=== PATIENT | female | born 1985 | race Caucasian/White ===

== ENCOUNTER 2018-12-07 10:46 | Observation (INO) | payer MEDICAID ==
[2018-12-07] MEDS ORDERED: Acetaminophen TAB* 325 MG PO PRN (20:14)
[2018-12-07] MEDS: Morphine INJ* 2 MG/ML 1 ML SYRINGE (TWO MG - NEW SYRINGE VERSION) IV PRN (20:49)
[2018-12-07] MEDS ORDERED: Enoxaparin(*) 40 MG/0.4 ML SYR SUBCUT SCH (21:00)
[2018-12-08] MEDS ORDERED: traZODone TAB* 100 MG PO SCH (01:00)
[2018-12-08] MEDS: Gabapentin CAP(*) 100 MG PO SCH ×2 (01:24→09:09)
[2018-12-08] MEDS: tiZANidine TAB* 2 MG PO SCH ×2 (01:29→09:09)
--- NOTE | 2018-12-08 03:10 | HP ---
CC: Dr. Aleksander Fuentes; MIKE Aburto * HISTORY AND PHYSICAL: DATE OF ADMISSION: 12/07/18 PROVIDER: Evelina Botello NP PRIMARY CARE PROVIDER: MIKE Aburto ATTENDING PHYSICIAN WHILE IN THE HOSPITAL: Dr. Oneyda Sims * (dictated by Evelina Botello NP) CHIEF COMPLAINT: Left foot and lower leg numbness. HISTORY OF PRESENT ILLNESS: Ms. Patrick is a 33-year-old female who initially presented to [facility] on 12/01/18 with complaints of severe pain in the neck and also pain in both lower extremities. The patient was being treated for bilateral lower extremity cellulitis and what was thought to be severe cellulitis that might be contributing to a lupus flare. While at [facility], the patient received doxycycline and Keflex and she has had a 7-day course for bilateral lower extremity cellulitis. The patient was going to be discharged on 12/06/18 and then developed numbness in her left foot and left lower leg, so [facility] was contacted for consult from Neurology and it was recommended that the patient be transferred to [facility] for neurological consult. While at [facility], the patient did have an MRI of the brain, which showed no acute infarct. The patient reports that approximately 2 days ago, approximately 1 hour after getting out of the shower, she developed left foot tingling and left foot and lower leg numbness. She reports that it was from below the knee to her toes that felt the numbness. She reports that this remains numb and the numbness sensation is now from just above her ankle to her toes. She also reported back pain during her hospitalization at [facility]. The patient had a venous Doppler bilateral lower extremities, which was negative for DVTs. Due to the numbness in her foot, [facility] was contacted for neurology consult and the patient was transferred to the [facility] to have a neurology consult. Due to her left foot numbness, we were asked to see and evaluate her for admission. PAST MEDICAL HISTORY: Significant for: 1. Systemic lupus erythematosus. 2. Rheumatoid arthritis. 3. Gastroparesis. 4. Anxiety. 5. Depression. 6. Esophageal reflux. 7. Peripheral neuropathy. PAST SURGICAL HISTORY: 1. History of bilateral total hip replacement. 2. Bilateral carpal tunnel release. 3. History of ERCP. 4. History of GI endoscopy and colonoscopy. 5. Right shoulder replacement. 6. Bladder surgery. MEDICATIONS: Home medications include: 1. Pantoprazole 40 mg p.o. daily. 2. Klonopin 0.25 mg p.o. b.i.d. p.r.n. anxiety. 3. Ketorolac 0.5, 1 drop to the right eye 4 times a day. 4. Prednisone 1%, 1 drop to the right eye 4 times a day. 5. Tylenol 650 mg p.o. q.4 hours as needed for pain or fever. 6. Colace 100 mg p.o. b.i.d. p.r.n. constipation. 7. Lactobacillus 1 tab p.o. b.i.d. 8. Lyrica 150 mg p.o. b.i.d. 9. Gabapentin 100 mg p.o. b.i.d. 10. Zanaflex 4 mg p.o. b.i.d. 11. Cymbalta 30 mg p.o. daily. 12. Celebrex 200 mg p.o. b.i.d. 13. BuSpar 15 mg p.o. b.i.d. 14. Trazodone 100 mg p.o. q.h.s. 15. Myrbetriq Extended Release 25 mg p.o. daily. 16. Viibryd 40 mg p.o. daily. ALLERGIES: To SULFA, BACTRIM, and RITUXIMAB. FAMILY HISTORY: Maternal grandmother with rheumatoid arthritis. Mom is age 55 and does not have any rheumatoid arthritis. Father is 56 with history of hypertension. Grandmother with an MA and at the age of 69. Grandfather with diabetes. SOCIAL HISTORY: The patient lives with her significant other and son. She quit smoking approximately 4 years ago and denies any alcohol use. She does report that she does use medical marijuana occasionally. Surrogate decision maker in the event she is unable to make her own decisions is her mother or boyfriend. She is a full code. REVIEW OF SYSTEMS: The patient denies any fever or unintended weight loss, chest pain, edema. She denies any cough, hemoptysis or shortness of breath. No nausea, vomiting, diarrhea, abdominal pain, gross hematuria, dysuria. Denies any focal weakness. She does report decreased sensation to the left foot from just above the ankle to her toes. Denies any recent changes in her vision, dysphagia, arthralgias, myalgias, rashes, lesions or open sores. No psychosis or anxiety. PHYSICAL EXAMINATION GENERAL: At this time, Ms. Patrick is a 33-year-old female. She is alert and oriented, resting in her bed. She is in no acute distress. VITAL SIGNS: Blood pressure 132/91, heart rate 70, respirations 24, O2 saturation 97%, temperature was 97.0. HEENT: Head is atraumatic, normocephalic. Eyes: EOMs are intact. Sclerae anicteric and not pale. Oral mucosa appears to be moist. NECK: Supple. LUNGS: Clear to auscultation bilaterally. No wheezes, rales, or rhonchi. CARDIAC: S1, S2. Regular rate and rhythm. No murmurs, rubs or gallops. ABDOMEN: Soft and nontender. Bowel sounds are present x4. EXTREMITIES: Her hands are contracted and she does have limited range of motion to her lower extremities. Pedal pulses are +2 bilaterally. Radial pulses are +2 bilaterally. She does have mild edema noted to bilateral lower extremities with mild erythema noted to bilateral lower extremities. There are no open sores or lesions. NEUROLOGIC: She is awake, alert, oriented x3. Speech is clear. Thought process is intact. Tongue is midline. Smile is equal, push-pull is intact. There is no pronator drift. She has no pronator drift. There are no gross focal deficits noted. SKIN: She does have mild erythema noted to bilateral lower extremities, is nonpainful. She does have ecchymosis noted to her abdomen. DIAGNOSTIC STUDIES/LAB DATA: Please refer to H and P from [facility]. The patient had a negative Doppler of the right lower extremity. She had a CT angio of the chest, which showed hepatosplenomegaly, otherwise is negative for pulmonary embolism. Doppler of the left lower extremity was negative. MRI of the brain no contrast is negative. She had a mammogram BI-RADS 0, additional views of the right breast with ultrasound are needed and there was no sonographic evidence of malignancy. She had a benign inflammatory lymph node noted at 7 o'clock. Labs at [facility], lactic acid was 0.8. CBC, WBCs were 9.4, hemoglobin was 9.3, hematocrit was 32, platelet count was 341. Glucose was 105, BUN was 15, creatinine 0.6. Sodium 136, potassium 3.9, chloride 103, CO2 is 26. Albumin 2.9, globulin was 4.2, ASTs were 29, ALTs were 20, alkaline phosphatase was 30. ASSESSMENT AND PLAN: Ms. Patrick is a 33-year-old female with a past medical history significant for systemic lupus erythematosus, rheumatoid arthritis, anxiety, depression, acid reflux, presented to [facility], was transferred from [facility] with left foot numbness for a neurology consultation. She will be admitted under observation for: 1. Left foot numbness. The patient has had a negative MRI of the brain, does not appear that this is associated with an acute infarct. The patient does have severe peripheral neuropathy. I have discussed this case with Dr. Fuentes from Neurology who has recommended an MRI of the lumbar spine. This has been ordered and results are currently pending. The patient at this time has no indication of acute infarct. I will hold off on placing the patient on aspirin or statin therapy as her MRI is negative for infarct and the patient continues to have left foot numbness. Again, I have discussed this case with Dr. Fuentes who is in agreement with holding off on further workup for cerebrovascular accident. It is likely the numbness in her foot could be related to her severe peripheral neuropathy. It has been recommended that she have an EMG as an outpatient. Within the differential is also lumbar spine disease that could be causing nerve impingement exacerbating her left foot numbness, will order MRI of the lumbar spine. I will monitor her on telemetry this evening and she will be seen in consultation by Neurology in the a.m. 2. Gastroesophageal reflux disease. The patient will continue on pantoprazole 40 mg p.o. daily. 3. Anxiety and depression. She will continue on Cymbalta as previously prescribed. 4. Rheumatoid arthritis. She will continue on Celebrex and Lyrica for pain control. 5. FEN. She can have a regular diet. 6. Code status: She is a full code. 7. DVT prophylaxis: I will place her on Lovenox subcu. Routine medications will need to be ordered when medication rec is completed. This has been requested. TIME SPENT: Time spent on this admission was approximately 60 minutes, greater than half that time was spent at the bedside reviewing events leading thus far to her admission, performing physical exam, and reviewing my plan of care. I have discussed this with my attending Dr. Oneyda Sims; she is in agreement with my plan. EVELINA BOTELLO NP [id number]/[facility] #: [id number] THUAN
[2018-12-08] MEDS: Morphine INJ* 2 MG/ML 1 ML SYRINGE (TWO MG - NEW SYRINGE VERSION) IV PRN (06:16)
[2018-12-08 07:55] LABS: ABS Lymphocytes 3.7 10^3/ul (1.0-4.8); ABS Monocytes 0.5 10^3/ul (0-0.8); ABS Neutrophils 4.2 10^3/ul (1.5-7.7); Eosinophil % 0.6 %; Hematocrit 33 % (35-47); Lymphocyte % 43.2 %; Mean Corpuscular HGB Conc 30 g/dL (31-36); Mean Corpuscular Hemoglobin 19 pg (27-31); Mean Corpuscular Volume 62 fL (80-97); Mean Platelet Volume 9.1 fL (7.4-10.4); Nucleated Red Blood Cells % 0.1; Platelet Count 212 10^3/uL (150-450); Red Blood Count 5.41 10^6 /uL (3.70-4.87); Red Cell Distribution Width 23 % (10.5-15); White Blood Count 8.5 10^3/uL (3.5-10.8)
[2018-12-08 08:10] LABS: BUN/Creatinine Ratio 22.8 (8-20); Calcium 9.1 mg/dL (8.6-10.3); EGFR African American 146.1 (>60); EGFR Non-African American 120.7 (>60); Potassium 3.6 mmol/L (3.5-5.0)
[2018-12-08] MEDS ORDERED: Lidocaine PATCH 5%* 1 PATCH TRANSDERM SCH (09:00)
[2018-12-08] MEDS ORDERED: busPIRone TAB* 15 MG PO SCH (09:00)
[2018-12-08] MEDS ORDERED: Pregabalin CAP(*) 50 MG PO SCH (09:00)
[2018-12-08] MEDS ORDERED: DULoxetine DR CAP* 30 MG CAP.DR PO SCH (09:00)
[2018-12-08] MEDS ORDERED: CMCS: Diclofenac 1% GEL (NF) 100 GM TUBE TOPICAL SCH (09:00)
[2018-12-08] MEDS ORDERED: CMCS: Vilazodone (NF) 40 MG TAB PO SCH (09:00)
[2018-12-08] MEDS ORDERED: MIRABEGRON 25 MG PO SCH (09:00)
[2018-12-08] MEDS ORDERED: celeCOXIB CAP* 200 MG PO SCH (09:00)
[2018-12-08] MEDS ORDERED: Pantoprazole TAB * 40 MG TAB PO SCH (09:00)
[2018-12-08 10:16] VITALS: BP 137/81
--- NOTE | 2018-12-08 10:41 | CONS ---
CC: MIKE Aburto * CONSULTATION REPORT: DATE OF CONSULT: 12/08/18 PRIMARY CARE PROVIDER: MIKE Aburto. REASON FOR CONSULT: Left lower extremity numbness. HISTORY OF PRESENT ILLNESS: Ms. Patrick is a 33-year-old female who is well known to me. I have been following her in clinic since May 2018. At that time, she presented with a very complicated history of multiple issues including fibromyalgia, chronic fatigue, neuropathy, lumbar radiculopathy, neck pain, gastroparesis. She had a cardiac arrest in 2014, irritable bowel. She has had multiple surgeries including left and right hip surgeries in 2016 and 2017, shoulder replacement in 2016, bladder surgery. She presented to [facility] back on 12/01/18. At that time, she was having severe neck pain and was also having some pain in her lower extremities. At baseline, she does have ongoing pain related to her fibromyalgia and also a diagnosis of lupus. She does follow with rheumatology and has been treated with Humira. I had previously been treating her with Lyrica with some good results. She was admitted to the hospital. There was concern for cellulitis and she was treated for a week with doxycycline and Keflex for bilateral lower extremity cellulitis. During her hospitalization there, on the day of discharge; 12/06/18 , she apparently developed what she described as acute onset of left foot numbness radiating up into the left leg. This was very concerning to her initially, although she did tell the doctors there that she has a history of peripheral neuropathy. Interestingly, looking back on her initial consultation in May 2018, she did report that she has a history of tingling and numbness in her left lower leg and foot and at times "she cannot feel her foot. " Given her rheumatoid arthritis and lupus, she has been on multiple medications, but has had these symptoms for quite some time. She also has carried a diagnosis of peripheral neuropathy. The treating physician at [place] became concerned and felt like she needed more neurology workup and so the patient was transferred here after a consultation over the phone with Dr. Hoang. Currently, in this hospital, she feels like her symptoms are much better; her left foot has improved. She does have chronic baseline weakness and is unable to ambulate. She is wheelchair-bound, but feels that her symptoms are similar in nature to previous. She did have an MRI of the brain without contrast done on 12/06/18 at [facility], which was read as unremarkable; I do not have the films. She had a venous Doppler of her left leg that showed negative left leg extremity venous Doppler. She had right and left lower extremity venous Doppler, which showed no definite evidence of deep venous thrombosis in the visualized right or left lower extremity veins; this was on 12/01/18. She had CT angio of the chest, which showed no evidence of pulmonary edema on 12/01/18. She had a venous Doppler of the right lower extremity, which was negative for DVT on 11/22/18. She also had a portable chest x-ray on 11/22/18, which showed no acute pathology with mild bibasilar atelectasis. During her hospitalization in [place], she was treated with benzodiazepines and some pain medication, which she did not receive last night and she is unhappy about that. She was also noted to have an enlargement of the right breast diagnosed by hematology/oncology, Dr. Collier, and Dr. Collier was consulted during her admission in [place] for anemia. It was noted that she has anemia of chronic disease. She was given Venofer and 1 unit of packed red blood cells. During that examination, it was noted that her right breast was large and mammogram was obtained. An ultrasound was requested, which was obtained and showed benign lymph nodes at the 7 o'clock position, 9 cm from the nipple, which will need to be monitored. In this hospital, she denies any new symptoms. She subsequently had an MRI of the lower lumbar spine when she arrived here at my request. MRI of the lumbar spine does show chronic disease. She has grade 2 anterolisthesis of L5 on S1 secondary to defects involving the pars interarticularis bilaterally, moderate degenerative changes of both facet joints, moderate narrowing of the spinal canal at this level. She also has moderate neural foraminal narrowing bilaterally at L5- S1 with effacement of the nerve root sleeve. There is no acute rupture appreciated. The cauda equina and conus medullaris are normal. She has multilevel degenerative disk disease. She notes no bladder or bowel incontinence. She notes no significant low back pain above her baseline. She does have some neck pain, which has been off and on, but improved. She notes no new numbness and tingling in her right leg or her bilateral upper extremities. Again, she does not walk. She is wheelchair-bound, but she notes no falls. At this point, she is anxious to go home. She feels like her foot is returning to baseline. PAST MEDICAL HISTORY: Significant as noted above. Also, lupus and rheumatoid arthritis. PAST SURGICAL HISTORY: As noted above. She also has a history of ERCP, bilateral carpal tunnel release, GI endoscopy and colonoscopy. MEDICATIONS: At home include: 1. Protonix. 2. Clonidine 0.25 mg p.o. b.i.d. for anxiety. 3. Ketorolac in the right eye 4 times a day. 4. Prednisolone in right eye 4 times a day. 5. Tylenol. 6. Colace. 7. Lactobacillus. 8. Lyrica 150 mg p.o. b.i.d. 9. Gabapentin 100 mg p.o. b.i.d. 10. Zanaflex. 11. Cymbalta 30 mg p.o. daily. 12. Celebrex 200 mg p.o. b.i.d. 13. BuSpar 15 mg p.o. b.i.d. 14. Trazodone 100 mg p.o. q.h.s. 15. Myrbetriq extended release 25 mg p.o. daily. 16. Viibryd 40 mg p.o. daily. ALLERGIES: SULFA, BACTRIM, and RITUXIMAB. FAMILY HISTORY: Significant for rheumatoid arthritis in her maternal grandmother. Father with hypertension. Grandmother with [place]. Grandfather with diabetes. SOCIAL HISTORY: She lives with her significant other and son. No recent tobacco use, quit 4 years ago. No alcohol or illicit substance use. She does use medical marijuana. REVIEW OF SYSTEMS: Review of systems in 14-organ systems as noted above; otherwise, negative. PHYSICAL EXAMINATION: Vital Signs: Temp of 97.6, she has been afebrile, pulse is 67, respiratory rate of 14, O2 sat of 94%, blood pressure 105/65. Her telemetry was negative. In general, she is a well-nourished, well-developed female, in no acute distress. She is lying in her hospital bed. She did become tearful at one point because she has not received pain medication and feels anxious. HEENT: She is normocephalic, atraumatic. Sclerae are anicteric. Mucous membranes are moist. Oropharynx is clear. She has no teeth, poor dentition. Neck is supple. No thyromegaly. No carotid bruits. No meningismus. Chest: Clear to auscultation bilaterally. Cardiovascular: Regular rate and rhythm without murmurs. Abdomen is nontender, nondistended. Extremities: There is no clubbing, cyanosis, or edema noted. Her skin is warm and dry without lesions. She does have scattered tattoos. On neurologic exam, she is awake, alert, oriented x3. Her speech is fluent. There is no dysarthria. Repetition is intact. Recall of recent and remote events is intact. Vocabulary is intact. Her mood is dysthymic. Affect and mood congruent. Cranial Nerves: Pupils are equal, round, and reactive to light and accommodation. Extraocular muscles are intact without nystagmus or diplopia. No ptosis is noted. Visual dyer are full to confrontation. Face is symmetric. Facial sensation is intact bilaterally to light touch. Hearing is intact bilaterally. Palate rises symmetrically. Tongue is midline. She spontaneously moves all extremities antigravity. In the upper extremities, she has good strength 5/5 throughout with no drift. In the lower extremities, she has 4+/5 strength throughout with some give-way weakness. No focal weakness is noted, no drift. DTRs were down throughout, 1+ in the upper extremities - biceps and brachioradialis, 1+ at the patella, absent at the ankles, equivocal Babinski's. Sensation: She notes subjective loss to all modalities, but on testing she seems to have well-preserved light touch, pinprick, vibration, proprioception in the lower extremities bilaterally. She had some mild decrement in her vibration in the toes bilaterally. [id number] and rapid alternating movements were intact. No tremors at rest or with movement. Gait was not tested at this time. LABORATORY DATA: Lab work, she had an H and H of 10.0 and 33, platelet count of 212. ASSESSMENT AND PLAN: Ms. 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 I originally saw her in May 2018. At that time, she complained of occasional left lower extremity numbness and tingling and at times "she could not feel her left foot." She was admitted to the hospital in [place] and treated for 7 days with what was presumed to be bilateral lower extremity cellulitis and DVT. Workup was negative. She developed acute left foot and lower leg numbness and the doctors in [place] were concerned and felt that she needed further neurologic workup; she was sent here. Currently, the patient feels like her symptoms are resolving. She does have this history of paroxysmal left lower foot and leg loss of sensation on top of her chronic neuropathy. Her lumbar spine showed no acute changes, although she does have some L5-S1 changes. I suspect these are chronic in nature. She has no evidence of stroke on MRI. I do not think that there is any further need at this point for workup. I think this can all be worked up as an outpatient. I would like to see her in my clinic for followup. I will continue her current medications for neuropathy. She was taking Lyrica at home, I know, and seemed to be doing better on that the last time I saw her in clinic in October 2018. At that time, she was having significant rheumatoid arthritis and fibromyalgia pain. We increased her Lyrica to 150 mg twice a day and decreased her gabapentin to 100 mg p.o. t.i.d. I felt like she needed physical therapy and I continue to feel that way. That needs to be arranged on an outpatient basis. She needs to follow up with her electronic equipment repairer regarding her treatment of rheumatoid arthritis and fibromyalgia. In addition, she needs to follow up with the clinical research manager regarding her treatment of anemia of chronic disease. She needs followup with her primary care regarding her breast enlargement and lymph node. I defer to the primary care physician regarding management of her chronic pain with any additional medications. She is on duloxetine 30 mg once a day, which likely also helps with her pain. I have no further recommendations at this point. No changes to her medications. I can see her back in my clinic in the near future. I think that she from the neurologic standpoint can be discharged home with followup. Thank you for the opportunity to participate in the care of this interesting patient. [id number]/[facility] #: [id number] [facility]
[2018-12-08] MEDS ORDERED: Lidocaine Patch REMOVE* 1 NOTE MISC SCH (21:00)
--- NOTE | 2018-12-09 02:30 | DS ---
CC: MIKE Aburto; Aleksander Fuentes MD; Dr. Maritza Romero * DISCHARGE SUMMARY: DATE OF ADMISSION: 12/07/18 DATE OF DISCHARGE: 12/08/18 PRIMARY CARE PROVIDER: MIKE Aburto NEUROLOGIST: Dr. Aleksander Fuentes. CERTIFIED LEGAL SECRETARY SPECIALIST: Dr. Maritza Romero. ATTENDING PHYSICIAN: Dr. Judith Choi * (dictated by Julissa Malik NP). PRIMARY DIAGNOSIS: Left foot numbness. SECONDARY DIAGNOSES: 1. Systemic lupus erythematosus. 2. Rheumatoid arthritis. 3. Peripheral neuropathy. 4. Anxiety. 5. Depression. 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 Moderate degenerative changes of both facet joints. Moderate narrowing of the spinal canal at this level. Moderate neural foraminal narrowing bilaterally at L5-S1 with effacement of the nerve root sleeve. CONSULTATIONS WHILE IN THE HOSPITAL: Dr. Fuentes from Neurology on 12/08/18. HISTORY OF PRESENT ILLNESS AND HOSPITAL COURSE: Ms. Patrick is a 33-year-old female with past medical history of SLE, RA, and neuropathy, who was a direct transfer from [facility] to this facility on 12/07/18 for neurological consult. Please see the history and physical by Evelina Botello NP, for complete summary of the events leading up to this hospitalization. In short, the patient had been hospitalized at [place] [facility] and was treated with a seven-day course of antibiotics for lower extremity cellulitis. She was going to be discharged, although then reported numbness in her left foot and lower leg, and so the hospitalist at [facility] contacted this facility due to the need for a neurological consultation. The patient did report some acute left lower extremity numbness. She did have a brain MRI at [facility] with no acute pathology , and upon arrival here, she did have a lumbar spine MRI with results noted above. Because of the need for neuro consult, she was admitted by the hospitalist service. The case was discussed with Dr. Fuentes who does see the patient as an outpatient for neuropathy. He, at that point, recommended holding off on further neurological workup, but he felt as though her symptoms were simply related to her neuropathy. The patient had an uneventful night and was seen by Dr. Fuentes this morning, who felt as though the patient's symptoms were consistent with complaints that she has had during prior visits to his office and he felt as though these are secondary to her neuropathy. He did not recommend any further imaging or medication changes. He did recommend physical therapy and a followup with her mallet cutter. He advised that the patient was stable for discharge from a neurological standpoint. The patient offers no complaints this morning except wanting to go home. She notes she is quite tired. On exam , she has no focal neurological deficits. Her heart has a regular rate and rhythm without murmurs, rubs, or gallops. Lungs are clear to auscultation without rhonchi, wheezes, or rubs. Physical exam was otherwise benign. Ms. Patrick is stable for discharge today. Vital signs are as follows: Temp 98.3, heart rate 94, respiratory rate 20, oxygen saturation 100% on room air, blood pressure 137/81. DISCHARGE MEDICATIONS: Continued medications: 1. Acetaminophen 650 mg p.o. q.4 hours p.r.n. fever, pain. 2. Humira 40 mg subcu weekly. 3. Buspirone 15 mg p.o. b.i.d. 4. Celebrex 200 mg p.o. b.i.d. 5. Restasis 0.05% 1 drop both eyes b.i.d. 6. Diclofenac 1% 1 application topically 4 times a day. 7. Docusate 100 mg p.o. b.i.d. p.r.n. constipation. 8. Duloxetine 30 mg p.o. daily. 9. Gabapentin 100 mg p.o. b.i.d. 10. Ketorolac 0.5% 1 drop right eye 4 times a day. 11. Lactobacillus 1 cap p.o. b.i.d. 12. Myrbetriq 25 mg p.o. daily. 13. Pantoprazole 40 mg p.o. daily. 14. Prednisone 1% 1 drop right eye 4 times a day. 15. Lyrica 150 mg p.o. b.i.d. 16. Tizanidine 4 mg p.o. b.i.d. 17. Trazodone 100 mg p.o. at bedtime. 18. Viibryd 40 mg p.o. daily. DISCHARGE PLAN: Ms. Patrick will be discharged home. Activity will be as tolerated. As noted above, physical therapy is recommended. Diet will be regular as tolerated. Medications are noted above. The patient can continue her usual medications and I have not made any changes at this point. Regarding followup, the patient will need close followup due to her complex medical history. She should follow up with mallet cutter at her discretion, though I recommended that she should see her mallet cutter in the near future. She will need to follow up with Dr. Fuentes in 2 months and I did schedule her an appointment for 02/23/19 at 10:30 a.m. Additionally, she will need to follow up with her primary care provider in 4 to 7 days. It is recommended that she follow up with structures assembler due to her anemia of chronic disease. Additionally, she will need to follow up with her PCP regarding an enlarged lymph node in her breast which was discovered at [facility]. The patient should return to the emergency room or nearest hospital for any worsening of symptoms, shortness of breath, lightheadedness, dizziness, chest discomfort, high fevers, chills, night sweats, loss of consciousness, or any other worrisome signs or symptoms. DISCHARGE CONDITION: Stable. DISCHARGE DISPOSITION: Home. This is a summarized report of a complex medical history and hospital stay. For further details, please see the entire medical record. TIME SPENT: Approximately 45 minutes was spent on this discharge. JULISSA MALIK NP [id number]/[facility] #: [id number] THUAN
== END 2018-12-08 12:00 | disposition home or self-care (01) ==
LOC: UNDOADMIN 17:51 → MEDTELE 17:51 → INTOOBSV 20:14 → UNDODISIN 12-08 12:00
PROVIDERS: ADMIT Internal Medicine; ATTEND Internal Medicine
DX: R20.0 Anesthesia of skin (principal); M32.9 Systemic lupus erythematosus, unspecified; M06.9 Rheumatoid arthritis, unspecified; K31.84 Gastroparesis; F41.9 Anxiety disorder, unspecified; F32.9 Major depressive disorder, single episode, unspecified; K21.9 Gastro-esophageal reflux disease without esophagitis; G62.9 Polyneuropathy, unspecified; Z88.2 Allergy status to sulfonamides
CPT/HCPCS: 36415; 72148; 80048; 85025; 87641; 96372; 96374; A9270-GY; G0378; J1650; J2270

== ENCOUNTER 2022-09-15 05:58 | Observation (INO) ==
[~2022-09-15 05:58] MED LIST: Buffered Lidocaine 1% SYRIN 1 ml INTRADERM ONE; HYDROcodone/ACETAMIN 5/325 mg TAB PO PRN; Lactated Ringers 1000 ml BAG 1,000 ML IV SCH; Metoclopramide 5 MG/ML VIAL (10 mg) IV PRN; Naloxone 0.4 mg VIAL 0.4 mg/ml 1 ml VIAL IV PRN; Ondansetron 4 mg VIAL 2 MG/ML 2 ml VIAL IV PRN; fentaNYL 100 mcg/2 ml 50 MCG/ML VIAL IV PRN
[2022-09-15] MEDS ORDERED: ceFAZolin 2 GM in NS PREMIX 2 GM/100 ML BAG IVPB ONE ×2 (06:17)
[2022-09-15] MEDS ORDERED: Rocuronium 50 mg VIAL 10 mg/ml 5 ml VIAL (50 mg) ONE ×2 (06:46→08:57)
[2022-09-15] MEDS ORDERED: Dexamethasone IV 4 MG/ML VIAL 1 ml VIAL ONE ×4 (06:46→07:23)
[2022-09-15] MEDS ORDERED: Ondansetron 4 mg VIAL 2 MG/ML 2 ml VIAL IM ONE (06:46)
[2022-09-15] MEDS ORDERED: Sevoflurane BOTTLE ONE (06:46)
[2022-09-15] MEDS ORDERED: Rocuronium 50 mg VIAL 10 mg/ml 5 ml VIAL (50 mg) INJ ONE ×2 (06:46→08:57)
[2022-09-15] MEDS ORDERED: Midazolam 2 mg/2 ml VIAL 1 mg/ml 2 ml VIAL (2 mg) ONE ×2 (06:46)
[2022-09-15] MEDS ORDERED: Propofol 10 MG/ML 20 ML BTL ONE ×2 (06:46)
[2022-09-15] MEDS ORDERED: Lidocaine 2% PF 5 ML VIAL ONE ×4 (06:46→11:12)
[2022-09-15] MEDS ORDERED: Ondansetron 4 mg VIAL 2 MG/ML 2 ml VIAL ONE (06:46)
[2022-09-15] MEDS ORDERED: fentaNYL 100 mcg/2 ml 50 MCG/ML VIAL ONE ×5 (06:47→11:28)
[2022-09-15] MEDS ORDERED: Phenylephrine IV 10 MG/ML 1 ml VIAL ONE ×2 (06:57)
[2022-09-15] MEDS ORDERED: ROPIVACAINE 5 MG/ML 30 ML BTL (0.5%) ONE ×2 (07:23)
[2022-09-15] MEDS ORDERED: Succinylcholine 200 mg VIAL 20 mg/ml 10 ml VIAL (200 mg) IM ONE (07:25)
[2022-09-15] MEDS ORDERED: Succinylcholine 200 mg VIAL 20 mg/ml 10 ml VIAL (200 mg) ONE (07:25)
[2022-09-15] MEDS ORDERED: Vancomycin 1,000 MG VIAL IRRIGATION ONE (07:46)
[2022-09-15] MEDS ORDERED: Vancomycin 1,000 MG VIAL ONE (07:46)
[2022-09-15] MEDS ORDERED: Esmolol 10 MG/ML 10 ML (100 mg) IV ONE ×2 (11:59)
[2022-09-15] MEDS ORDERED: Magnesium Hydroxide LIQ 30 ML UDC PO PRN (12:16)
[2022-09-15] MEDS ORDERED: Morphine 2 MG/ML SYRINGE IV PRN (12:16)
[2022-09-15] MEDS ORDERED: Lactulose 30 ml UDC PO PRN (12:16)
[2022-09-15] MEDS ORDERED: Lactated Ringers 1000 ml BAG 1,000 ML IV SCH (13:00)
[2022-09-15] MEDS ORDERED: Albuterol HFA INHALER 8 gm MDI INH PRN (14:24)
[2022-09-15 15:48] VITALS: BP 137/84
[2022-09-15] MEDS ORDERED: ceFAZolin 1 GM ADVAN 1 GM in NS 0.9% 50 ML 50 ML IVPB SCH (16:00)
[2022-09-15] MEDS ORDERED: Magnesium Hydroxide LIQ 30 ML UDC PO SCH (21:00)
[2022-09-15] MEDS ORDERED: DICLOFENAC SODIUM 50 MG PO SCH (21:00)
[2022-09-16] MEDS ORDERED: NORETHINDRONE ACETATE 5 MG PO SCH (09:00)
[2022-09-16] MEDS ORDERED: Vitamin THERAPEUTIC TAB PO SCH (09:00)
[2022-09-16] MEDS ORDERED: CMCS: Sildenafil (PULMONARY)20mg(NF) PO SCH (09:00)
[2022-09-16] MEDS ORDERED: DULoxetine DR 60 mg CAP PO SCH (09:00)
[2022-09-16] MEDS ORDERED: TOFACITINIB 11 MG PO SCH (09:00)
== END 2022-09-15 17:50 | disposition home or self-care (01) ==
LOC: AA 05:58 → INTOOBSV 05:58 → SSU 12:16
PROVIDERS: ADMIT Orthopaedic Surgery; ATTEND Orthopaedic Surgery